=== PATIENT | female | born 1940 | race Caucasian/White ===

== ENCOUNTER 2019-11-12 07:41 | Outpatient (CLI) | payer MEDICARE, BC, OTHER ==
[2019-11-12 14:04] LABS: INR-International Normal Ratio 1.2; PTT 33.6 sec (22.9-36.1); Prothrombin Time 14.7 sec (12.0-14.7)
[2019-11-12 14:15] LABS: Hemoglobin 14.7 g/dL (12.0-16.0); Mean Corpuscular HGB CONC 31.6 g/dL (32.0-36.0); Mean Corpuscular Hemoglobin 29.4 pg (27.0-31.0); Mean Platelet Volume 9.3 fL (7.4-10.4); Platelet Count 186 thou/uL (130-400); Red Blood Cell (RBC) Count 5.01 mill/uL (4.20-5.40); White Blood Cell (WBC) Count 5.9 thou/uL (4.8-10.8)
[2019-11-12 14:54] LABS: Anion Gap 12 mmol/L (10-20); BUN (Urea Nitrogen) 14 mg/dL (9.8-20.1); Calc. Creatinine Clearance 0 mL/min (70-130); Calcium 9.7 mg/dL (7.8-10.44); Carbon Dioxide 28 mmol/L (23-31); Chloride 106 mmol/L (98-107); Estimated GFR-MDRD 63; Glucose 91 mg/dL (83-110); Potassium 4.9 mmol/L (3.5-5.1); Sodium 141 mmol/L (136-145)
[2019-11-13 12:45] LABS: SARS-CoV-2 MS2 Positive; SARS-CoV-2 N Gene Negative; SARS-CoV-2 S Gene Negative; SARS-CoV-2 by NAA Not Detected (NotDetected); SARS-CoV-2 orf1ab Negative
== END 2019-11-12 07:42 | disposition home or self-care (01) ==
LOC: LABBT 07:41
PROVIDERS: ATTEND Internal Medicine Cardiovascular Disease
DX: Z01.818 Encounter for other preprocedural examination (principal); Z20.828 Contact with and (suspected) exposure to other viral communicable diseases; I48.91 Unspecified atrial fibrillation
CPT/HCPCS: 80048; 85027; 85610; 85730; U0003; 87635; 93005; 93010

== ENCOUNTER 2019-11-16 11:21 | Day surgery (SDC) | payer MEDICARE, BC ==
[2019-11-11 13:06] VITALS: BMI 29.7
[2019-11-16] MEDS ORDERED: PROPOFOL 20 ML ONE (16:20)
[2019-11-16] MEDS ORDERED: Lisinopril 10 MG TAB ONE (16:20)
--- NOTE | 2019-11-16 21:07 | OP ---
DATE OF PROCEDURE: 11/16/2019 PROCEDURE PERFORMED: Electrical cardioversion. ADDITIONAL REFERRING PHYSICIAN: Dr. Titi Fitzpatrick. REASON FOR PROCEDURE: Ms. Saxena is a 79-year-old female with history of persistent atrial fibrillation. She is fairly minimally symptomatic, but interested in baptism of sinus rhythm to assess improvement from sinus rhythm versus persistent atrial fibrillation. She has been well anticoagulated with oral anticoagulant Eliquis without interruption. Multaq was considered for her, but she declined due to financial reasons. DESCRIPTION OF PROCEDURE: The patient received propofol by Anesthesia specialist. After adequate level of sedation achieved, a synchronized 200-joule shock promptly converted the patient back to sinus rhythm. CONCLUSION: Successful cardioversion. PLAN: Monitor for recurrent atrial arrhythmias. Continue Eliquis. Consider Multaq or alternative antiarrhythmic agent if symptomatic recurrent atrial fibrillation is seen. Job ID: [id number]
== END 2019-11-16 17:15 | disposition home or self-care (01) ==
LOC: CCL 11:21
PROVIDERS: ATTEND Internal Medicine Cardiovascular Disease
PROC: 5A2204Z Restoration of Cardiac Rhythm, Single (ICD-10-PCS; principal; 2019-11-16)
DX: I48.19 Other persistent atrial fibrillation (principal); I25.10 Atherosclerotic heart disease of native coronary artery without angina pectoris; E03.9 Hypothyroidism, unspecified; E78.00 Pure hypercholesterolemia, unspecified; M79.7 Fibromyalgia; Z79.01 Long term (current) use of anticoagulants; Z79.82 Long term (current) use of aspirin; Z79.899 Other long term (current) drug therapy; Z86.73 Personal history of transient ischemic attack (TIA), and cerebral infarction without residual deficits; Z87.891 Personal history of nicotine dependence; Z88.5 Allergy status to narcotic agent; Z88.8 Allergy status to other drugs, medicaments and biological substances
CPT/HCPCS: 92960; J2704